=== PATIENT | female | born 1980 | race Caucasian/White ===

== ENCOUNTER 2017-09-17 08:43 | Outpatient (CLI) | payer OTHER ==
--- NOTE | 2017-09-17 10:42 | RAD ---
PA AND LATERAL CHEST: Date: 09/17/17 HISTORY: Pneumonia. COMPARISON: 01/04/17. FINDINGS: Cardiac silhouette and pulmonary vasculature are within normal limits. The lungs remain clear. There has been no interval change from the prior exam. IMPRESSION: No acute cardiopulmonary process. POS: [facility]
== END 2017-09-17 08:44 | disposition home or self-care (01) ==
LOC: RAD-FRANK 08:43
PROVIDERS: ATTEND Nurse Practitioner Family
DX: J18.9 Pneumonia, unspecified organism (principal)
CPT/HCPCS: 71046

== ENCOUNTER 2018-03-15 10:10 | Outpatient (CLI) | payer OTHER ==
--- NOTE | 2018-03-15 12:29 | RAD ---
CHEST TWO VIEWS: 03/15/2018 HISTORY: Cough. Bronchitis. COMPARISON: 09/17/2017 FINDINGS: No pneumothorax, pleural fluid, focal consolidation, or alveolar edema. Heart and mediastinal contou rs are unremarkable. IMPRESSION: No acute findings. POS: [facility]
== END 2018-03-15 10:11 | disposition home or self-care (01) ==
LOC: RAD-FRANK 10:10
PROVIDERS: ATTEND Nurse Practitioner Family
DX: J45.909 Unspecified asthma, uncomplicated (principal)
CPT/HCPCS: 71046

== ENCOUNTER 2019-02-04 08:55 | Outpatient (CLI) | payer OTHER ==
--- NOTE | 2019-02-04 09:16 | RAD ---
EXAM: Chest 2 views: HISTORY: Cough COMPARISON: 03/15/2018 FINDINGS: There is a normal-sized cardiomediastinal silhouette. There is no evidence of consolidation, mass, or pleural effusion. The bones are unremarkable. IMPRESSION: No evidence of acute cardiopulmonary disease
== END 2019-02-04 08:56 | disposition home or self-care (01) ==
LOC: RAD-FRANK 08:55
PROVIDERS: ATTEND Nurse Practitioner Family
DX: J40 Bronchitis, not specified as acute or chronic (principal)
CPT/HCPCS: 71046

== ENCOUNTER 2020-06-09 11:50 | Outpatient (CLI) | payer OTHER ==
--- NOTE | 2020-06-09 11:57 | RAD ---
EXAM: CHEST TWO VIEWS 06/09/2020 11:55 AM HISTORY: History of pleurisy COMPARISON: February 04, 2019 FINDINGS: Lungs: No acute airspace consolidation. Heart: Normal in size and contour. Pulmonary Vessels: Normal. Costophrenic Angles: Clear. Pneumothorax: None. Osseous Structures: Intact. Additional Findings: None. IMPRESSION: No significant acute intrathoracic disease.
== END 2020-06-09 11:51 | disposition home or self-care (01) ==
LOC: RAD-FRANK 11:50
PROVIDERS: ATTEND Nurse Practitioner Family
DX: R09.1 Pleurisy (principal)
CPT/HCPCS: 71046

== ENCOUNTER 2020-12-14 15:55 | Outpatient (CLI) | payer OTHER | END 2020-12-14 15:56 | disposition home or self-care (01) | LOC: RAD-FRANK 15:55 | PROVIDERS: ATTEND Nurse Practitioner Family | DX: R06.00 Dyspnea, unspecified (principal) | CPT/HCPCS: 71046 ==

== ENCOUNTER 2021-07-05 07:52 | Outpatient (CLI) | payer OTHER | END 2021-07-05 07:53 | disposition home or self-care (01) | LOC: RAD 07:52 | PROVIDERS: ATTEND Internal Medicine Critical Care Medicine | DX: R06.00 Dyspnea, unspecified (principal) | CPT/HCPCS: 71046 ==